=== PATIENT | male | born 1965 | race Two or more races ===

== ENCOUNTER 2020-11-09 11:17 | Emergency (ER) | payer SELFPAY ==
[~2020-11-09] VITALS: Ht 165.1 cm; Wt 68.0 kg
[2020-11-09 12:11] VITALS: BP 121/81
--- NOTE | 2020-11-09 12:14 | NUR ---
Patient presented to the ER with c/o allergic reaction s/t placing foggers at his house for bugs. Per daughter for translation, he may have inhaled the fumes and started c/o difficulty breathing with SOB. EMS was called who in turn checked him out and advised for him to come to the hospital for further testing/assessment. Independently ambulatory. AAOX4. [facility] hx of high cholesterol. No medications for this. Just supplements.
--- NOTE | 2020-11-09 12:15 | NUR ---
pt placed in bed. on O2 monitor. pt O2 100% RA. will continue to monitor.
--- NOTE | 2020-11-09 12:18 | Emergency Room Report ---
History of Present Illness General Chief Complaint: Allergic Reaction Source: Patient Present Illness HPI Patient is a 55-year-old male who was brought in by his daughter to the emergency room to get checked out. Patient states that he was using raid bombs at home and it filled the air which caused him to cough. He now states that he is completely asymptomatic. Denies any more coughing, chest pain, shortness of breath, fever or chills. He states he feels totally fine but his daughter want to make sure. 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 Patient History Reviewed Nursing Documentation: PMH: Agreed; PSxH: Agreed Nursing Documentation-PMH Past Medical History: No Stated History Hx Cardiac Problems: No Hx Hypertension: No Hx Pacemaker: No Hx Asthma: No Hx COPD: No Hx Diabetes: No Hx Cancer: No Hx Gastrointestinal Problems: No Hx Dialysis: No History Of Psychiatric Problem: No Hx Neurological Problems: No Hx Cerebrovascular Accident: No Hx Seizures: No Review of Systems All Other Systems: negative except mentioned in HPI Physical Exam Vital Signs Date Time Temp Pulse Resp B/P (MAP) Pulse Ox O2 Delivery O2 Flow Rate FiO2 11/09/20 12:00 97.9 64 18 121/81 (94) 94 Room Air 11/09/20 12:11 94 Sp02 EP Interpretation: reviewed, normal General Appearance: no apparent distress, alert, GCS 15, non-toxic Head: normocephalic, atraumatic Eyes: bilateral eye normal inspection, bilateral eye PERRL ENT: hearing grossly normal, normal pharynx, no angioedema, normal voice Neck: full range of motion, supple/symm/no masses Respiratory: chest non-tender, lungs clear, normal breath sounds, speaking full sentences Cardiovascular #1: regular rate, rhythm, no edema Gastrointestinal: normal bowel sounds, non tender, soft, non-distended, no guarding, no rebound Rectal: deferred Musculoskeletal: normal range of motion 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 Vital signs stable specifically patient's oxygen saturation while within the emergency department has been 94%. He is in no acute distress. He is speaking in complete sentences. Patient's chest x-ray is clear. I advised him to not be in the house when he uses the raid bombs. After discussing risks and benefits of further diagnostics, treatment plans, as well as indications for and risks of admission, the patient is agreeable to being discharged home. I have explained that their evaluation and treatment in the emergency department today is an important step towards them achieving better health but that their evaluation today is not intended to replace further evaluation and treatment by a physician in their local clinic. I have explained that while the current findings suggest no immediate life threatening emergency they will require further evaluation and treatment by a physician of their choice in their area. They understand that it will be necessary for them to review the final reports of their ED visit with their clinic physician. We have reviewed indications for return to the Emergency Department. I have explained that additional time may need to pass and/or additional testing as an outpatient may be necessary before a definitive diagnosis can be made. They tell me they are willing to follow up as instructed within the timeframe I recommend. They appear to understand what we discussed. Additionally they understand that if they are unable to be seen by an outpatient physician they are welcome, and in fact should, return to the Emergency Department for a repeat evaluation. The patient is stable at time of discharge. Chest X-Ray Diagnostic Results Chest X-Ray Diagnostic Results : Chest X-Ray Ordered: Yes # of Views/Limited/Complete: 1 View Indication: Other - Cough EP Interpretation: Yes Interpretation: no consolidation, no effusion, no pneumothorax, no acute cardiopulmonary disease Impression: No acute disease Electronically Signed by: Yesika Reyes MD Last Vital Signs Date Time Temp Pulse Resp B/P (MAP) Pulse Ox O2 Delivery O2 Flow Rate FiO2 11/09/20 12:11 97.9 18 121/81 94 Room Air 11/09/20 12:11 64 94 Disposition: HOME, SELF-CARE Condition: Stable Additional Instructions: The patient was provided with discharge instructions, notified to follow-up with a primary care doctor and or specialist in the next 24-48 hours, and to return to the ED if they have worsening of their symptoms. Please note that this report is being documented using [employer] technology. This can lead to erroneous entry secondary to incorrect interpretation by the dictating instrument. Yesika Reyes M.D. Nov 09, 2020 12:18
--- NOTE | 2020-11-09 13:26 | Diagnostic Imaging Report ---
EXAM: XR Chest, 1 View CLINICAL HISTORY: COUGH TECHNIQUE: Frontal view of the chest. COMPARISON: No relevant prior studies available. FINDINGS: Lungs: No clear consolidation. Pleural space: Unremarkable. No pneumothorax. Heart: Borderline cardiomegaly, likely exaggerated by portable technique. Mediastinum: Unremarkable. Bones/joints: Unremarkable. IMPRESSION: No clear consolidation. If there is ongoing clinical concern, consider formal PA and lateral radiographs.
== END 2020-11-09 13:27 | disposition home or self-care (01) ==
LOC: EMR 12:24
DX: Z00.00 Encounter for general adult medical examination without abnormal findings (principal); R05 Cough
CPT/HCPCS: 71045; 99283